=== PATIENT | male | born 1955 | race Caucasian/White ===

== ENCOUNTER 2018-05-25 02:56 | Emergency (ER) | payer OTHER ==
[~2018-05-25] VITALS: Ht 172.7 cm; Wt 104.3 kg
--- NOTE | ~2018-05-25 | EKG ---
[place], [place] ELECTROCARDIOGRAM REPORT NAME: ELFEGO BUCHANAN UNIT #: [id number] ROOM: DOCTOR: EPIPHANY DRAFT REPORT BIRTHDATE: [birth year] [facility] Test Date: 2018-05-25 Test Time: 03:15:55 Pat Name: ELFEGO BUCHANAN Department: Room: Gender: M Science Tutor: : 1955 Requested By: Ar Ryder MD Order Number: [id number] Reading MD: Ar Ryder MD Measurements Intervals [place] Rate: 97 P: 53 AR: 205 QRS: -15 QRSD: 83 T: 43 QT: 336 QTc: 427 Interpretive Statements Sinus rhythm Probable left atrial enlargement Inferior infarct, old Probable anteroseptal infarct, old Baseline wander in lead(s) II,III,aVL,aVF Electronically Signed On 05-27-2018 5:29:12 PST by Ar Ryder MD CM:EKGRPT:ELECTROCARDIOGRAM REPORT [id number] PRIYANKA WHITT DRAFT REPORT PRIYANKA SCOTT DO
[2018-05-25 03:15] LABS: BASO # 0.1 10*3/uL (0.0-0.1); BASO % 0.7 % (0.0-1.0); EOS # 0.1 10*3/uL (0.0-0.4); EOS % 0.9 % (1.0-4.0); HEMATOCRIT 47.2 % (42.0-52.0); LYMPH # 1.3 10*3/uL (1.3-4.4); LYMPH % 9.8 % (27.0-41.0); MEAN CELL VOLUME 87.6 fl (80.0-94.0); MEAN CORPUSCULAR HGB 29.7 pg (27.0-31.0); MEAN CORPUSCULAR HGB CONC 33.9 g/dl (33.0-37.0); MEAN PLATELET VOLUME 10.8 fl (9.6-12.3); MONO # 0.9 10*3/uL (0.1-1.0); MONO % 6.5 % (3.0-9.0); NEUT # 10.6 10*3/uL (2.3-7.9); NEUT % 81.7 % (47.0-73.0); PLATELET COUNT AUTOMATED 280 10*3/uL (130-400); RED BLOOD COUNT 5.39 10*6/uL (4.50-5.90); RED CELL DISTRI WIDTH 13.1 % (0-14.5)
[2018-05-25 03:25] LABS: ACT PARTIAL THROMBO TIME 23.5 SECONDS (20.8-31.5); INTERNATIONAL NORM RATIO 0.9 (2.0-3.5)
[2018-05-25 03:31] LABS: ALBUMIN 3.2 gm/dl (3.1-4.5); ALKALINE PHOSPHATASE 138 U/L (45-117); BUN 12 mg/dl (7-24); CHLORIDE 105 mmol/L (98-107); CREATININE 0.98 mg/dL (0.70-1.30); POTASSIUM 3.7 mmol/L (3.5-5.1); SGOT/AST 11 IU/L (3-35); SGPT/ALT 11 U/L (12-78); SODIUM 139 mmol/L (136-145); TOTAL PROTEIN 6.4 gm/dL (6.4-8.2); TROPONIN I < 0.015 ng/ml (<0.045)
[2018-05-25 05:06] LABS: BILIRUBIN NEGATIVE (NEGATIVE); BLOOD NEGATIVE (NEGATIVE); CLARITY CLEAR (CLEAR); COLOR YELLOW (YELLOW); GLUCOSE 2+ (NEGATIVE); KETONE NEGATIVE (NEGATIVE); LEUKO ESTERASE NEGATIVE (NEGATIVE); NITRITE NEGATIVE (NEGATIVE); SPECIFIC GRAVITY 1.025 (1.005-1.030)
== END 2018-05-25 08:40 | disposition short-term general hospital (02) ==
LOC: ED 02:56
PROVIDERS: Student in an Organized Health Care Education/Training Program
DX: R41.0 Disorientation, unspecified (principal); E11.649 Type 2 diabetes mellitus with hypoglycemia without coma

== ENCOUNTER 2021-04-26 20:15 | Emergency (ER) | payer OTHER ==
[~2021-04-26] VITALS: Ht 182.8 cm; Wt 103.1 kg
[2021-04-26] MEDS ORDERED: QUINAPRIL40 MG PO (20:33)
[2021-04-26] MEDS ORDERED: HUMALOG100 UNIT/1 SC (20:33)
[2021-04-26] MEDS ORDERED: TOUJEO SOL300 UNIT/1 SQ (20:34)
[2021-04-26 21:31] LABS: HEMATOCRIT 48.3 % (42.0-52.0); MEAN CORPUSCULAR HGB 30.4 pg (27.0-31.0); MEAN CORPUSCULAR HGB CONC 34.2 g/dl (33.0-37.0); MEAN PLATELET VOLUME 10.7 fl (9.6-12.3); PLATELET COUNT AUTOMATED 318 10*3/uL (130-400); RED BLOOD COUNT 5.43 10*6/uL (4.50-5.90); RED CELL DISTRI WIDTH 13.2 % (0-14.5); WHITE BLOOD COUNT 20.7 10*3/uL (4.8-10.8)
[2021-04-26 21:47] LABS: ALBUMIN 3.4 gm/dl (3.1-4.5); ALKALINE PHOSPHATASE 121 U/L (45-117); BUN 13 mg/dl (7-24); CHLORIDE 102 mmol/L (98-107); CREATININE 0.97 mg/dL (0.70-1.30); POTASSIUM 4.1 mmol/L (3.5-5.1); SGOT/AST 6 IU/L (3-35); SGPT/ALT 15 U/L (12-78); SODIUM 136 mmol/L (136-145)
[2021-04-26 21:48] LABS: PLATELET SUFFICIENCY NORMAL (NORMAL); TOTAL CELLS COUNTED 100 #CELLS
[2021-04-26 21:49] LABS: BURR CELLS FEW
[2021-04-26] MEDS ORDERED: LIPITOR10 MG PO (21:56)
[2021-04-26 23:34] LABS: BILIRUBIN Negative (Negative); BLOOD Negative (Negative); CLARITY Clear (Clear); COLOR Yellow (Yellow); GLUCOSE 3+ (Negative); KETONE Trace (Negative); LEUKO ESTERASE Negative (Negative); NITRITE Negative (Negative)
== END 2021-04-27 00:11 | disposition left against medical advice (07) ==
LOC: ED 20:15
PROVIDERS: Emergency Medicine
DX: R56.9 Unspecified convulsions (principal); E87.2 Acidosis; Z79.899 Other long term (current) drug therapy